=== PATIENT | female | born 1970 | race Caucasian/White ===

== ENCOUNTER 2017-06-27 13:22 | Emergency (ER) | payer SELFPAY ==
[2017-06-27 13:29] VITALS: TEMP 97.9
--- NOTE | 2017-06-27 13:42 | CPEKG ---
Heart Rate: 72 RR Interval: 833 P-R Interval: 176 QRSD Interval: 72 QT Interval: 368 QTC Interval: 403 P [place]: 71 QRS [place]: 53 T Wave [place]: 51 EKG Severity - NORMAL ECG - EKG Impression: SINUS RHYTHM Electronically Signed By: Steve Mckeon 27-Jun-2017 14:33:03
[2017-06-27] MEDS ORDERED: NS 1,000 ML IV ONE (13:53)
--- NOTE | 2017-06-27 13:58 | EDPHY ---
HPI/HX/ROS/PE/MDM Narrative: CHIEF COMPLAINT: Chest pain HISTORY OF PRESENT ILLNESS: The patient is a 46 y/o female who complains of 2 episodes of chest pain, 1 that was last week and 1 yesterday. She has been having tooth pain for 1 year; and 1 week ago she experienced sharp chest pain after taking too much Advil. The pain started on her sternum and radiated out, lasting for 1.5 minutes. While lying down last night, she experienced similar sharp pain on her sternum that radiated to her shoulder and up to her tooth, lasting 4-5 minutes. She did break out into sweats and felt nauseas. Today she experienced tunnel vision with a rapid heart rate and felt like she was going to pass out. She did not experience the sternal pain bud did feel like her chest was cramping up. Patient has no history of diabetes, hypertension, hyperlipidemia. She is a cigarette smoker. She is not postmenopausal. No family history of coronary artery disease. Denies history of indigestion, gallstones or kidney complaints. Denies recent illness. No fever, chills, shortness of breath, palpitations, vomiting, diarrhea, urinary complaints, headache, lightheadedness. REVIEW OF SYSTEMS: Aside from elements discussed in the HPI, a comprehensive 10-point review of systems was reviewed and is negative. PAST MEDICAL HISTORY: Denies, orthopedic surgeries and tubal ligation SOCIAL HISTORY: Smokes cigarettes and marijuana. Occasional alcohol. VITAL SIGNS: Reviewed by me GENERAL: Well-developed, well-nourished, resting comfortably in no respiratory distress. HEENT: Atraumatic. Eyes: No icterus, no injection. Mouth: Bilateral upper molar decay. moist mucous membranes. No erythema or lesions. Neck: supple with no adenopathy. LUNGS: Clear to auscultation bilaterally, no wheezes, rhonchi or rales. CARDIAC: Regular rate and rhythm, no rubs, murmurs or gallops. ABDOMEN: No epigastric or upper abdominal pain to palpation. Soft, nontender, nondistended, bowel sounds normal. BACK: No CVA tenderness. EXTREMITIES: No trauma. No edema. Range of motion is normal throughout. NEURO: Alert and oriented, grossly nonfocal. SKIN: Warm and dry, no rash. PSYCHIATRIC: Normal mentation, no agitation. Portions of this note were transcribed by a medical resident. I personally performed a history, physical exam, medical decision making, and confirmed accuracy of information the transcribed note. ED Course: The patient is a 46 y/o female who presents with intermittent sternal pain that does not last more than 5 minutes. She does not have tenderness to her epigastric region on palpation. 12-LEAD EKG: Please see the full report in [facility]. My interpretation: Normal sinus rhythm with a rate of 72. Patient's evaluation emergency department largely unremarkable. Her troponin is 0.016. Normal lipase, normal LFTs, negative Tylenol level. On re-examination at 3 o'clock, patient is resting comfortably. Plan at this point is for repeat EKG and repeat troponin 4 hours after the 1st. 12-LEAD EKG: Please see the full report in [facility]. My interpretation: Normal sinus rhythm with a rate of 72. Repeat troponin is negative for cardiac disease. Reassessed patient and discussed return precautions. Patient is comfortable with this plan. MDM: Diff dx considered included but not limited to ACS, pleuritic chest pain, pericarditis,esophageal spasm, reflux, biliary colic, anxiety, arrhythmias. - Data Points Imaging: I viewed and interpreted images myself Laboratory Results: Laboratory Results 06/27/17 13:45 06/27/17 13:45 Medications Given: Discontinued Medications Aspirin (Aspirin) 324 mg PO EDNOW ONE Stop: 06/27/17 15:15 Last Admin: 06/27/17 15:22 Dose: 324 mg Sodium Chloride (Ns) 1,000 mls @ 0 mls/hr IV EDNOW ONE; Wide Open PRN Reason: Protocol Stop: 06/27/17 13:54 Last Admin: 06/27/17 14:09 Dose: 1,000 mls General Time Seen by Provider: 06/27/17 13:38 Initial Vital Signs: Initial Vital Signs Temperature (C) 36.6 C 06/27/17 13:25 Heart Rate 77 06/27/17 13:25 Respiratory Rate 17 06/27/17 13:25 Blood Pressure 101/61 06/27/17 13:25 O2 Sat (%) 97 06/27/17 13:25 O2 Delivery Mode Room Air Allergies/Adverse Reactions: No Known Allergies Allergy (Unverified 06/27/17 13:25) Home Medications: Medication Instructions Recorded Penicillin V Potassium [Pen Vk] 500 mg PO Q6H 7 Days tab 06/27/17 Departure - Departure Disposition: Home, Routine, Self-Care Clinical Impression: Toothache Chest pain Qualifiers: Chest pain type: unspecified Qualified Code(s): R07.9 - Chest pain, unspecified Condition: Good Instructions: Chest Pain (ED), Esophageal Spasm (ED), Toothache (ED) Additional Instructions: Please take the penicillin as directed. 500 mg by mouth 4 times a day for 7 days. Please consider taking omeprazole on a regular basis for the next 2 weeks. This is available [id number]. This may help with her chest discomfort as well as abdominal discomfort. Please follow up with your primary care physician for re-examination in the next week. Return to the emergency department seek care urgently if he develops severe chest discomfort, shortness of breath, nausea, vomiting, abdominal discomfort, or other concerns. Referrals: Rosemarie Erazo MD [Medical Doctor] - As per Instructions Prescriptions: Penicillin V Potassium [Pen Vk] 500 mg PO Q6H 7 Days tab Report Scribed for: Veronica Chase Report Scribed by: Lilli Short Date of Report: 06/27/17 Time of Report: 13:43
[2017-06-27 14:00] LABS: % IMMATURE GRANULYOCYTES 0.1 % (0.0-1.1); ABSOLUTE IMMATURE GRANULOCYTES 0.01 10^3/uL (0.00-0.10); ADD DIFF? NO; ADD MORPH? NO; ADD SCAN? NO; ATYPICAL LYMPHOCYTE FLAG 20 (0-99); FRAGMENT RBC FLAG 0 (0-99); LEFT SHIFT FLG 0 (0-99); LIPEMIA HEMOLYSIS FLAG 90 (0-99); MEAN CELL HEMOGLOBIN 31.9 pg (27.9-34.1); MEAN CELL VOLUME 93.6 fL (81.5-99.8); MEAN PLATELET VOLUME 10.8 fL (8.7-11.7); PLATELET CLUMPS FLAG 10 (0-99); PLATELET COUNT 216 10^3/uL (150-400); RED BLOOD CELL COUNT 5.02 10^6/uL (4.18-5.33); RED CELL DISTRIBUTION WIDTH 15.1 % (11.5-15.2)
[2017-06-27 14:11] LABS: ALANINE AMINOTRANSFERASE 33 IU/L (9-52); ALBUMIN 4.7 g/dL (3.5-5.0); ALKALINE PHOSPHATASE 86 IU/L (38-126); ANION GAP 14 mEq/L (8-16); ASPARTATE AMINOTRANSFERASE 21 IU/L (14-46); BILIRUBIN,TOTAL 0.6 mg/dL (0.1-1.4); BILIRUBIN-CONJUGATED 0.3 mg/dL (0.0-0.5); BILIRUBIN-UNCONJUGATED 0.3 mg/dL (0.0-1.1); CALCIUM 11.2 mg/dL (8.5-10.4); CARBON DIOXIDE 23 mEq/l (22-31); CHLORIDE 107 mEq/L (97-110); CREATININE 0.9 mg/dL (0.6-1.0); GLOMERULAR FILTRATION RATE > 60; GLUCOSE 125 mg/dL (70-100); POTASSIUM 3.9 mEq/L (3.5-5.2); SODIUM 144 mEq/L (134-144); TOTAL PROTEIN 8.3 g/dL (6.3-8.2)
[2017-06-27 14:24] LABS: TROPONIN I 0.016 ng/mL (0.000-0.034)
[2017-06-27] MEDS ORDERED: ASPIRIN 81 MG CHEWABLE TAB PO ONE (15:14)
[2017-06-27 15:25] VITALS: PULSE 78
--- NOTE | 2017-06-27 17:40 | CPEKG ---
Heart Rate: 72 RR Interval: 833 P-R Interval: 192 QRSD Interval: 76 QT Interval: 388 QTC Interval: 425 P [place]: 67 QRS [place]: 49 T Wave [place]: 46 EKG Severity - NORMAL ECG - EKG Impression: SINUS RHYTHM Electronically Signed By: Veronica Chase 27-Jun-2017 21:10:16
[2017-06-27 18:31] VITALS: BP 105/71; RESP 18; O2SAT 93
== END 2017-06-27 18:31 | disposition home or self-care (01) ==
DX: R07.9 Chest pain, unspecified (principal); K08.89 Other specified disorders of teeth and supporting structures; F17.210 Nicotine dependence, cigarettes, uncomplicated; E86.9 Volume depletion, unspecified
CPT/HCPCS: G0480